=== PATIENT | female | born 1945 | race Caucasian/White ===

== ENCOUNTER → 2018-09-09 | Outpatient (CLI) | payer OTHER, MEDICARE ==
[~2018-09-09] MED LIST: REGADENOSON 0.4 MG/5 ML PF SYG IVP SCH
== END | disposition home or self-care (01) ==
LOC: SHCH 08:03
PROVIDERS: ATTEND Internal Medicine Cardiovascular Disease
DX: I35.0 Nonrheumatic aortic (valve) stenosis (principal); R06.00 Dyspnea, unspecified
CPT/HCPCS: 78452; 93017; 96374; A9500 ×2

== ENCOUNTER 2019-07-16 05:37 | Day surgery (SDC) | payer OTHER, MEDICARE ==
[2019-07-14 11:00] VITALS: BP 147/68
[2019-07-14 11:25] LABS: BASOPHILS % (AUTO) 0.9 % (0.0-5.0); EOSINOPHILS % (AUTO) 2.2 % (0.0-8.0); HEMATOCRIT 39.7 % (36-48); LYMPHOCYTES % (AUTO) 36.4 % (21.0-51.0); MEAN CORPUSCULAR HEMOGLOBIN 29.8 pg (27.0-33.0); MEAN CORPUSCULAR HGB CONC 33.8 g/dL (32.0-36.0); MEAN CORPUSCULAR VOLUME 88.2 fL (79-99); MONOCYTES % (AUTO) 5.8 % (3.0-13.0); NEUTROPHILS % (AUTO) 54.7 % (40.0-77.0); NUCLEATED RED BLOOD CELLS 0.1 % (0.0-0.19); PLATELET COUNT (AUTO) 272 K/uL (130-400); RED CELL DISTRIBUTION WIDTH 13.9 % (11.0-15.5); WHITE BLOOD COUNT (AUTO) 8.2 K/uL (4.8-10.8)
[2019-07-14 11:36] LABS: APPEARANCE,URINE Clear (CLEAR); BILIRUBIN,URINE Negative (NEGATIVE); COLOR,URINE Yellow (YELLOW); GLUCOSE, URINE (UA) Negative (NEGATIVE); KETONES,URINE Negative (NEGATIVE); LEUKOCYTE ESTERASE ,URINE Negative (NEGATIVE); NITRATE,URINE Negative (NEGATIVE); OCCULT BLOOD,URINE Negative (NEGATIVE); PROTEIN,URINE Negative (NEGATIVE); UROBILINOGEN,URINE 0.2 mg/dL (0.2-1.0)
[2019-07-14 11:41] LABS: CREATININE 1.1 mg/dL (0.5-1.5); POTASSIUM 4.3 mmol/L (3.5-5.1)
[2019-07-14 11:42] LABS: INR 0.96 (0.85-1.15); PARTIAL THROMBOPLASTIN TIME 25.4 SEC (26.3-35.5); PROTHROMBIN TIME 10.1 SEC (9.6-11.6)
--- NOTE | 2019-07-15 12:36 | NUR ---
abnormal ekg: notified john major of dr. campos regarding ekg showing atrial fibrillation and no doumenttion of pt having any histoiry on history and physical. ok to preocedd with heart catheterization.
[2019-07-16] VITALS (11 sets, daily range): BP systolic 109–131; BP diastolic 45–79
[~2019-07-16] VITALS: Ht 165.1 cm; Wt 112.6 kg
[~2019-07-16 05:37] MED LIST changes: +AEC81 PO; +ALBUTEROL INHALER PO; +ALEN35TA23 PO; +CARV6.25 PO; +FURO20TA4 PO; +LEVO175T9 PO; +LISI-613 PO; +METF-444 PO; +OMEG100014 PO; -REGADENOSON 0.4 MG/5 ML PF SYG IVP SCH; +SIMV40TA5 PO
--- NOTE | 2019-07-16 06:10 | NUR ---
PRE-PROCEDURE RECEIVED FROM HOME VIA AMBULATING TO DAY 15 FOR SCHEDULED RT AND LHC. AWAKE IN NO ACUTE DISTRESS, BUT WITH EXERTIONAL SOA. DENIES PAIN. CONNECTED TO CONTINUOUS CARDIOPULMONARY MONITORING. SIDE RAILS UP X2, BED IN LOWEST POSITION, AND CALL LIGHT W/IN REACH.
[2019-07-16] MEDS ORDERED: SODIUM CHLORIDE 0.9% 1000ML 1,000 ML IV ONE (06:55)
[2019-07-16] MEDS ORDERED: IOHEXOL-350 50ML VIAL IV ONE (06:59)
[2019-07-16] MEDS ORDERED: HEPARIN SODIUM 1000UNIT/ML 10ML VIAL ONE (06:59)
[2019-07-16] MEDS ORDERED: IOHEXOL 350 MG/ML 100ML INFUS..BTL IV ONE (06:59)
[2019-07-16] MEDS ORDERED: LIDOCAINE HCL 2% 20ML ONE (07:00)
--- NOTE | 2019-07-16 07:10 | NUR ---
PROCEDURE TRANSFERRED TO CHEMICAL LABORATORY TESTER VIA BED BY EBONI PACE RN. AWAKE IN NO ACUTE DISTRESS.
[2019-07-16] MEDS ORDERED: GLUCAGON 1MG KIT 1 MG ML IM PRN (08:45)
[2019-07-16] MEDS ORDERED: SODIUM CHLORIDE 0.9% 10 ML VIAL IVP SCH (08:45)
[2019-07-16] MEDS ORDERED: DEXTROSE 50%-WATER 50 ML DISP.SYRIN IV PRN (08:45)
--- NOTE | 2019-07-16 09:16 | NUR ---
POST-PROCEDURE RECEIVED FROM [facility]ER VIA BED S/P RT AND C VIA BED BY EBONI PACE RN. AWAKE IN NO ACUTE DISTRESS. CONNECTED TO CONTINUOUS CARDIOPULMONARY MONITORING. CATH SITE W/O SIGNS OF BLEEDING, D-STAT CLEAN, DRY, AND INTACT;SITE SOFT, NON-TENDER. SIDE RAILS UP X2, BED IN LOWEST POSITION, AND CALL LIGHT W/IN REACH. INSTRUCTED PT ON IMPORTANCE OF KEEPING RIGHT LEG STRAIGHT AND HEAD FLAT. PT VERBALIZED UNDERSTANDING.
--- NOTE | 2019-07-16 11:06 | NUR ---
FAXED FACE SHEET, DIAGRAM, AND CATH REPORT FAXED TO DR. UREÑA OFFICE ORDERED.
[2019-07-16] MEDS ORDERED: INSULIN HUMULIN R 100 UNIT/ML 3ML SQ SCH (11:30)
--- NOTE | 2019-07-16 12:00 | NUR ---
DIET ATE 75% ON LUNCH.
--- NOTE | 2019-07-16 12:30 | NUR ---
ACTIVITY HOB ELEVATED TO 25 DEGREES. CATH SITE W/O SIGNS OF BLEEDING, DSTAT DRESSING CLEAN, DRY, AND INTACT;SITE SOFT, NON-TENDER.
--- NOTE | 2019-07-16 15:06 | NUR ---
REPORT BEDSIDE REPORT GIVEN TO BEATRIZ VARGAS USING SBAR/VERBALIZED UNDERSTANDING.
--- NOTE | 2019-07-16 15:15 | NUR ---
PT IS RESTING COMFORTABLY WITH NO PAIN AND FAMILY AT BEDSIDE. DRESSING IS DRY AND INTACT AND PD PULSES ARE PRESENT WILL CONTINUE TO MONITOR.
--- NOTE | 2019-07-16 17:00 | NUR ---
PT. LEFT VIA WHEELCHAIR IN PVT CAR WITH DAUGHTER. D/C INSTRUCTION GIVEN TO DAUGHTER WITH F/U APPT. DRESSING WAS DRY AND INTACT AND PD WERE PRESENT TO L/EXT.BILATERALLY.
== END 2019-07-16 17:00 | disposition home or self-care (01) ==
LOC: DAH 05:37
PROVIDERS: ATTEND Internal Medicine Cardiovascular Disease
DX: I35.0 Nonrheumatic aortic (valve) stenosis (principal); I25.10 Atherosclerotic heart disease of native coronary artery without angina pectoris; I11.9 Hypertensive heart disease without heart failure; E03.9 Hypothyroidism, unspecified; E78.00 Pure hypercholesterolemia, unspecified; E11.9 Type 2 diabetes mellitus without complications; Z79.899 Other long term (current) drug therapy; Z79.82 Long term (current) use of aspirin; Z79.84 Long term (current) use of oral hypoglycemic drugs; Z90.710 Acquired absence of both cervix and uterus; Z79.01 Long term (current) use of anticoagulants; Z87.891 Personal history of nicotine dependence; Z82.49 Family history of ischemic heart disease and other diseases of the circulatory system; Z83.3 Family history of diabetes mellitus
CPT/HCPCS: 36415; 71045; 80048; 81003; 82948 ×3; 85025; 85610; 85730; 93005; 93460; A4215; A4216; A4222; A4223 ×3; A4606; A4663; C1769 ×3; C1894 ×2; J1644; J3490; J7030; Q9965; Q9967 ×2

== ENCOUNTER 2025-03-06 19:05 | Inpatient (IN) | payer OTHER, MEDICARE ==
[~2025-03-06] VITALS: Ht 154.9 cm; Wt 117.3 kg
[~2025-03-06 19:05] MED LIST changes: -ALEN35TA23 PO; +ALEN35TA53 PO; +APIX5TAB PO; -LISI-613 PO; +LISI20TA24 PO; +SIMV-46 PO; -SIMV40TA5 PO
--- NOTE | 2025-03-06 19:44 | EKG ---
[facility] Test Date: 2025-03-06 Test Time: 19:40:23 Pat Name: BRIDGER HILLMAN Department: ED Room: 316 Gender: F Systems Security Analyst: [id number] 1945 Requested By: MYA YOUSSEF Order Number: [id number] Reading MD: Vishnu Warner Measurements Intervals [place] Rate: 90 P: 0 MT: 0 QRS: 57 QRSD: 94 T: 45 QT: 337 QTc: 412 Interpretive Statements Atrial fibrillation Compared to ECG 08/21/2019 04:45:52 No significant changes Electronically Signed On 03-07-2025 10:17:35 CDT by Vishnu Warner Please click the below link to view image of tracing.
[2025-03-06 20:08] LABS: BASOPHILS # (AUTO) 0.04 K/uL (0.00-0.20); BASOPHILS % (AUTO) 0.4 % (0.0-5.0); EOSINOPHILS # (AUTO) 0.28 K/uL (0.00-0.70); EOSINOPHILS % (AUTO) 2.6 % (0.0-8.0); HEMATOCRIT 41.8 % (36-48); IMMATURE GRANULOCYTE ABSOLUTE 0.03 K/uL (0-1); LYMPHOCYTES # (AUTO) 2.3 K/uL (1.0-4.8); LYMPHOCYTES % (AUTO) 20.6 % (21.0-51.0); MEAN CORPUSCULAR HGB CONC 33.3 g/dL (32.0-36.0); MEAN CORPUSCULAR VOLUME 93.1 fL (79-99); MONOCYTES % (AUTO) 8.9 % (3.0-13.0); NEUTROPHILS # (AUTO) 7.4 K/uL (1.8-7.7); NEUTROPHILS % (AUTO) 67.2 % (40.0-77.0); PLATELET COUNT (AUTO) 181 K/uL (130-400); RED BLOOD CELL COUNT(AUTO) 4.49 MIL/uL (4.00-5.50)
--- NOTE | 2025-03-06 20:10 | HMCIMG ---
Exam Type: CHEST 1VW Clinical Information: sob Comparison: None Findings: There is cardiomegaly and there is status post median sternotomy. The lungs are clear of infiltrates. Impression: Clear lungs.
[2025-03-06 20:17] LABS: CREATININE 2.9 mg/dL (0.5-1.0); MAGNESIUM 1.8 mg/dL (1.80-2.40); POTASSIUM 5.2 mmol/L (3.5-5.1)
--- NOTE | 2025-03-06 21:57 | HP ---
[facility] Date of Service: Mar 06, 2025 Time of Service: 21:56 PCP: Xuan Quinn HISTORY OF PRESENT ILLNESS: This is an 79-year-old female with past medical history of hypertension, hyperlipidemia, hypothyroidism, aortic stenosis, coronary artery disease with CABG x2 and aortic valve replacementwho presents to the ED for evaluation of abnormal lab results.As per patient she had a lab work done last Sunday and was told to repeat lab work today because they want to make sure it is accurate and in today in the afternoon she received a call from the clinic and instructed to come to the ED because her renal function was very low and needs to be evaluated.Patient reports she has no complaints and she has no history of kidney problem before.Patient denies nausea,vomiting,ciarrhea,chest pain,palpitation and shortness of breath. Seen and examied patient in the ER,awake,alert,coherent and ambulatory using a cane. Latest vital signs temperature 97.3, heart rate 78, respiration 23, blood pressure 118/46 saturation 96% on room air. Labs: WBC 11, hemoglobin 13, hematocrit 41 platelet count 181. Sodium 136, potassium 5.2, chloride 100, BUN 55, creatinine 2.9 GFR 16, glucose 127 troponin 59 to 48 . Chest x-ray result is clear lungs. While in the ER patient received 1 L NS bolus, 5 units insulin and Lokelma 5 g p.o. and D50 IV. We will admit patient for further medical management. REVIEW OF SYSTEMS CONSTITUTIONAL: Denies fevers, chills, or night sweats. No unintentional weight loss reported. NEUROLOGICAL: Denies headache, amaurosis fugax, motor weakness, sensory deficit, vertigo/spinning sensation, gait abnormalities, or tremors. ENT: No hearing loss, otalgia, otorrhea, rhinitis, rhinorrhea, hoarseness, or sore throat. CARDIOVASCULAR: Denies any exertional angina, dyspnea on exertion, orthopnea, paroxysmal nocturnal dyspnea, palpitations, life-threatening arrhythmias, claudication. PULMONARY: Denies any shortness of breath, cough, phlegm/sputum, hemoptysis, pleuritic chest pain. SLEEP: Denies morning headaches, daytime somnolence or napping. Denies difficulty falling asleep, staying asleep, waking from sleep. Denies knowledge of snoring. GASTROINTESTINAL: Denies any type of dysphagia to either liquids or solids. Denies nausea, vomiting, pyrosis, early satiety, abdominal pain, diarrhea, constipation, or changes in stool consistency or caliber. Denies coffee-ground emesis, hematemesis, hematochezia, or melanotic stools. GENITOURINARY: Denies frequency, urgency, nocturia, hematuria or incontinence (Storage/Irritative symptoms.) Low urinary stream, straining to void, urinary intermittency or hesitancy, splitting of the voiding stream, terminal dribbling. ENDOCRINOLOGIC: Denies polyuria, polydipsia, polyphagia or heat/cold intolerances. HEMATOLOGIC: Denies thrombophilia/previous clots, or coagulopathy/bleeding disorders. ONCOLOGIC: Denies personal history of malignancy. DERMATOLOGIC: Denies rashes or pruritus. PSYCHIATRIC: Denies any suicidal or homicidal ideation. Denies hallucinations. PAST MEDICAL HISTORY: [ Coronary artery disease, severe aortic stenosis, atrial fibrillation, hypertension, diabetes, hypothyroidism and arthritis ] PAST SURGICAL HISTORY: [ Hysterectomy, cholecystectomy Coronary artery bypass graft x2 with aortic valve replacement on August 2019 ] PAST SOCIAL HISTORY: [ Patient lives with son. Patient denies cigarette,alcohol and recreational drug use. Patient states she used to be a heavy smoker smoke two packs per day quit 2001 ] FAMILY HISTORY: [ Hypertension, diabetes, cardiovascular disease and cancer ] Coded Allergies: No Known Drug Allergies (Unverified Allergy, Unknown, 09/06/18) PHYSICAL EXAM GENERAL APPEARANCE: The patient is awake, alert, and oriented, in no acute cardiopulmonary distress. NEUROLOGICAL: Cranial nerves II-XII grossly intact. Motor is 5/5 in bilateral upper and lower extremities proximal to distal. No sensory deficits. HEENT: Face is symmetric. Pupils are equal and reactive. Extraocular movements are intact. NECK: Supple. No JVD. No thyromegaly. No submental, submandibular, pre- /postauricular, occipital or supraclavicular lymphadenopathy. CHEST: Normal chest expansion. No Telemetry. LUNGS: Absence of any rales, rhonchi or any wheezing. CARDIOVASCULAR: Regular. S1 and S2 normal. No appreciable rubs, murmurs or gallops. ABDOMEN: Soft, nontender, and nondistended. There is no rebound, voluntary guarding, or rigidity. : Deferred. No Cotton. EXTREMITIES: Non-edematous and not cyanotic. No clubbing. Good capillary refill. SKIN: No skin breakdown. Vital Sign (Last 24 Hours) 03/06/25 21:23 Temp 96.8 Pulse 100 Resp 20 B/P (MAP) 153/88 Pulse Ox 95 O2 Delivery Room Air* O2 Flow Rate 0 FiO2 21 LABS: Laboratory: Test 03/06/25 19:59 Range/Units White Blood Count 11.0 H 4.8-10.8 K/uL Red Blood Count 4.49 4.00-5.50 MIL/uL Hemoglobin 13.9 12.0-16.0 g/dL Hematocrit 41.8 36-48 % Mean Corpuscular Volume 93.1 79-99 fL Mean Corpuscular Hemoglobin 31.0 27.0-33.0 pg Mean Corpuscular Hemoglobin Concent 33.3 32.0-36.0 g/dL Red Cell Distribution Width 13.0 11.0-15.5 % Platelet Count 181 130-400 K/uL Mean Platelet Volume 9.8 7.5-10.5 fL Immature Granulocyte % (Auto) 0.3 0-1 % Neutrophils (%) (Auto) 67.2 40.0-77.0 % Lymphocytes (%) (Auto) 20.6 L 21.0-51.0 % Monocytes (%) (Auto) 8.9 3.0-13.0 % Eosinophils (%) (Auto) 2.6 0.0-8.0 % Basophils (%) (Auto) 0.4 0.0-5.0 % Neutrophils # (Auto) 7.4 1.8-7.7 K/uL Lymphocytes # (Auto) 2.3 1.0-4.8 K/uL Monocytes # (Auto) 1.0 0.1-1.0 K/uL Eosinophils # (Auto) 0.28 0.00-0.70 K/uL Basophils # (Auto) 0.04 0.00-0.20 K/uL Absolute Immature Granulocyte (auto 0.03 0-1 K/uL Nucleated Red Blood Cells 0.0 0.0-0.19 % Sodium Level 136 136-145 mmol/L Potassium Level 5.2 H 3.5-5.1 mmol/L Chloride Level 100 L 101-111 mmol/L Carbon Dioxide Level 29 21-32 mmol/L Blood Urea Nitrogen 55 H 7-18 mg/dL Creatinine 2.9 H 0.5-1.0 mg/dL Glomerular Filtration Rate Calc 16 >90 mL/min Random Glucose 127 H 70-105 mg/dL Total Calcium 9.0 8.5-10.1 mg/dL Magnesium Level 1.80 1.80-2.40 mg/dL Troponin I High Sensitivity 59 *H 4-50 ng/L DIAGNOSTICS / RADIOLOGY: [ ] ASSESSMENT: Elevated troponin POA Acute kidney injury on acute renal failure POA Morbid Obesity POA Hypertension POA Hyperlipidemia POA Coronary artery disease with CABGx2 and AVR POA Hypothyroidism POA Hyperglycemia POA Hyperkalemia POA PLAN: We will admit patient in medical telemetry We will start on hearft healthy diet We will start NS @ 100 ml / hrx1 bag and re evaluate We will continue home dose Eliquis,atorvastatin and levothyroxine home dose We will start on Famotidine 20 mgQ48H for GI prophylaxis We will add prn medication for fever,pain,cough ,nausea and vomiting We will reconcile home meds once medlist available We will trend troponin We will request labs in am We will request urinalysis We will obtain renal sonogram We will seek cardiology consultation We will seek nephrology consultation Further orders to follow depending on above results Case discussed with attending physician and came up with above treatment and plan of care. ADVANCED CARE PLANNING 1. Which of the following were discussed? Hospice Care - No Therapeutic options - Yes Advance Directives - No Other discussions - 2. Discussed with who? Patient and son Blayne Brown 3. Voluntary nature of this service was explained to the patient? Yes 4. Amount of time spent - __24 5. Reviewed by Physician? (if this service was performed by NPP) Yes Patient seen and examined by me. Agree with note by WASTE MACHINE TENDER SEE ADDITIONAL ORDERS PER CHART DISCUSSED WITH NURSING STAFF LEONIDAS HUTCHISONP Mar 06, 2025 21:57
[2025-03-06] MEDS: 0.9%NACL 1000ML 1,000 ML IV ONE (22:02)
[2025-03-06] MEDS: INSULIN humuLIN R 100 UNIT/ML 3ML IV ONE (22:02)
[2025-03-06] MEDS: SODIUM ZIRCONIUM CYCLOSILICATE 5 GM POWD.PACK PO ONE (22:02)
[2025-03-06] MEDS: DEXTROSE 50%-WATER 50 ML DISP.SYRIN IV ONE (22:02)
--- NOTE | 2025-03-06 22:20 | ERN ---
General Chief Complaint: Abnormal Labs Stated Complaint: SENT BY PHY Time Seen by MD: 19:27 Time Seen by Midlevel: 19:27 Source: patient History of Present Illness Initial Comments The patient is an 79-year-old female presenting to the emergency department for evaluation of abnormal labs. According to the patient she was told by her primary care doctor that her renal function was declining so she was advised to report to the ER for further evaluation. On arrival with the patient has no complaints Allergies: Coded Allergies: No Known Drug Allergies (Unverified Allergy, Unknown, 09/06/18) Home Meds Active Scripts Apixaban (Eliquis) 5 Mg Tablet, 5 MG PO BID, #60 TAB 2 Refills Prov:CHARLES BRONSON AUDIT TECH 08/26/19 Lisinopril (Lisinopril) 20 Mg Tablet, 10 MG PO DAILY, #30 TAB 2 Refills Prov:CHARLES BRONSON AUDIT TECH 08/26/19 Reported Medications Alendronate Sodium (Alendronate Sodium) 35 Mg Tablet, 35 MG PO QWEEK, TAB 07/14/19 [Albuterol Inhaler] 90 mcg No Conflict Check, 2 PUFF PO Q6HPRN PRN for SHORT NESS OF BREATH 07/14/19 Furosemide (Furosemide) 20 Mg Tablet, 20 MG PO DAILY, TAB 07/14/19 Metformin HCl (Metformin HCl) 500 Mg Tablet, 500 MG PO BID, TAB 07/14/19 Levothyroxine Sodium (Levothyroxine Sodium) 175 Mcg Tablet, 175 MCG PO ACBKFST, TAB 07/14/19 Simvastatin (Simvastatin) 40 Mg Tablet, 40 MG PO HS, TAB 07/14/19 Aspirin (ASPIRIN 81 MG ECTAB) 81 Mg Ectab, 81 MG PO DAILY, TAB.EC 07/14/19 T[place]on-3 Fatty Acids ([place]-3) 1,000 Mg Capsule, 1000 MG PO DAILY, CAP 07/14/19 Carvedilol (Carvedilol) 6.25 Mg Tablet, 6.25 MG PO BID, TAB 07/14/19 Past Medical History Past Medical History: High Cholesterol, Hypertension Past Surgical History: Hysterectomy, Other Surgical History Other: HEART VALVE SX ROS Dictation CONSTITUTIONAL: Negative except for HPI HEAD/FACE: Negative except for HPI EENT: Negative except for HPI RESPIRATORY: Negative except for HPI GASTROINTESTINAL/ABDOMINAL: Negative except for HPI GENITOURINARY: Negative except for HPI MUSCULOSKELETAL: Negative except for HPI INTEGUMENTARY: Negative except for HPI NEUROLOGICAL/PSYCH: Negative except for HPI HEMATOLOGIC/LYMPHATIC: Negative except for HPI All Systems Negative, Except as noted above. 13 point review of systems assessed and all negative except for above. Physical Exam Physical Exam Dictation Vital Signs reviewed General Appearance: Alert, oriented x 3, no acute distress, well developed, nourished. Head and Face: non-traumatic. Eyes: PERRL, pink conjunctivas, eyelid no trauma, anterior chamber with arcus senilis. Ears: Pinnas intact and no signs of trauma or erythema ear canals clear and no discharge TM no erythema Nose: No discharge, no bleeding. Oropharynx: Mouth normal, tongue pink, pharynx clear,no erythema, tonsils no exudates, no abscesses noted, mucous membrane moist Neck: Supple, non-tender, no thyromegaly, no masses, no JVD, no bruits Breast:Deferred Chest:No tenderness, no crepitus, no paradoxical movement, no retractions Lungs:Clear, well-ventilated, symmetric, no rales, no wheezing, no rhonchi, no stridor, good breath sounds bilaterally Heart: Regular rate, regular rhythm, no murmur, no gallops Vascular: no peripheral edema, Abdomen: Soft, positive bowel sounds, nondistended, no guarding, nontender, no rebound, no masses no hepatomegaly, no splenomegaly, no Jiménez's sign, no hernias. Rectal: Deferred Genital: Deferred Neurological: Normal speech, motor function intact, sensory function intact Musculoskeletal: Neck nontender, full range of motion, back nontender, full range of motion, Extremities: nontender, full range of motion Skin: Color pink, dry, no turgor, no rash, no lacerations, no abrasions, no contusions. Lymphatic: Deferred Results Laboratory and Microbiology Lab and Micro Result Laboratory Tests Test 03/06/25 19:59 03/06/25 21:59 White Blood Count 11.0 K/uL (4.8-10.8) H Red Blood Count 4.49 MIL/uL (4.00-5.50) Hemoglobin 13.9 g/dL (12.0-16.0) Hematocrit 41.8 % (36-48) Mean Corpuscular Volume 93.1 fL (79-99) Mean Corpuscular Hemoglobin 31.0 pg (27.0-33.0) Mean Corpuscular Hemoglobin Concent 33.3 g/dL (32.0-36.0) Red Cell Distribution Width 13.0 % (11.0-15.5) Platelet Count 181 K/uL (130-400) Mean Platelet Volume 9.8 fL (7.5-10.5) Immature Granulocyte % (Auto) 0.3 % (0-1) Neutrophils (%) (Auto) 67.2 % (40.0-77.0) Lymphocytes (%) (Auto) 20.6 % (21.0-51.0) L Monocytes (%) (Auto) 8.9 % (3.0-13.0) Eosinophils (%) (Auto) 2.6 % (0.0-8.0) Basophils (%) (Auto) 0.4 % (0.0-5.0) Neutrophils # (Auto) 7.4 K/uL (1.8-7.7) Lymphocytes # (Auto) 2.3 K/uL (1.0-4.8) Monocytes # (Auto) 1.0 K/uL (0.1-1.0) Eosinophils # (Auto) 0.28 K/uL (0.00-0.70) Basophils # (Auto) 0.04 K/uL (0.00-0.20) Absolute Immature Granulocyte (auto 0.03 K/uL (0-1) Nucleated Red Blood Cells 0.0 % (0.0-0.19) Sodium Level 136 mmol/L (136-145) Potassium Level 5.2 mmol/L (3.5-5.1) H Chloride Level 100 mmol/L (101-111) L Carbon Dioxide Level 29 mmol/L (21-32) Blood Urea Nitrogen 55 mg/dL (7-18) H Creatinine 2.9 mg/dL (0.5-1.0) H Glomerular Filtration Rate Calc 16 mL/min (>90) Random Glucose 127 mg/dL (70-105) H Total Calcium 9.0 mg/dL (8.5-10.1) Magnesium Level 1.80 mg/dL (1.80-2.40) Troponin I High Sensitivity 59 ng/L (4-50) *H Whole Blood Glucose 125 MG/DL (70-110) H Labs Reviewed?: Yes MDM MDM: Differential diagnosis: Dehydration, acute kidney injury, electrolyte ab normality Rationale: Tests considered and ordered secondary to shared decision making include: Previous outside records reviewed: Old ER visits. Risk of complication and/or morbidity or mortality of patient management: None Medications-Per medication reconciliation Need for hospitalization: Patient does meet criteria for hospitalization. Need for emergency major/minor surgery: No There are no social concerns with this patient. Prescription drug management Prescriptions will include symptomatic care Patient's prior external medical records from other ER visits were reviewed by me as indicated. Prior testing and results from previous visits were reviewed. Prior tests were taken into account with medical decision making and resource utilization, independent historian/historians were used to obtain complete medical history. I independently interpreted the test that were performed, results were reviewed by me and considered findings on radiology if ordered. Medical management and examination interpretation discussions were had by me with other qualified healthcare professionals as indicated for the patient's care. ED Course Orders Procedure Category Date Status Time Cbc With Differential LAB 03/06/25 Complete 19:27 Basic Metabolic Panel LAB 03/06/25 Complete 19:27 Troponin I High LAB 03/06/25 Complete Sensitivity 19:27 12 Lead Ekg Tracing- EKG 03/06/25 Complete Technical 19:27 Urinalysis Profile LAB 03/06/25 Logged 19:27 Magnesium LAB 03/06/25 Complete 19:27 Chest 1vw RAD 03/06/25 Resulted 19:27 0.9%Nacl 1000ml (Ns PHA 03/06/25 Complete 1000ml) 20:30 Insulin Regular, PHA 03/06/25 Complete Human 3ml (Humulin R 20:30 Sodium Zirconium PHA 03/06/25 Complete Cyclosilicate 20:30 Dextrose 50%-Water PHA 03/06/25 Complete (D50w) 21:00 Current Medications Medications (Trade) Dose Ordered Sig/Carol Ann Route PRN Reason Start Time Stop Time Status Last Admin Dose Admin Dextrose (D50w) 50 ml ONCE ONCE IV 03/06/25 21:00 03/06/25 21:01 DC 03/06/25 22:02 Insulin Human Regular (humuLIN R 100 UNIT/ML 3ML) 5 unit ONCE ONCE IV 03/06/25 20:30 03/06/25 20:31 DC 03/06/25 22:02 Sodium Chloride 1,000 ml @ 0 mls/hr ONCE ONCE IV 03/06/25 20:30 03/06/25 20:31 DC 03/06/25 22:02 Sodium Zirconium Cyclosilicate (Lokelma) 5 gm ONCE ONCE PO 03/06/25 20:30 03/06/25 20:31 DC 03/06/25 22:02 Vital Signs Date Time Temp Pulse Resp B/P (MAP) Pulse Ox O2 Delivery O2 Flow Rate FiO2 03/06/25 21:23 96.8 100 20 153/88 95 Room Air* 0 21 03/06/25 19:21 98.1 87 18 139/56 93 Room Air 0 DX & DISP Disposition: Discharge Departure Impression: Primary Impression: ROMULO (acute kidney injury) Additional Impressions: Dehydration, Hyperkalemia, Elevated troponin Condition: Stable Referrals: CHACHO YATES MD (PCP) Time of Disposition: 22:19 I have reviewed the case, and I agree with, Diagnosis and Plan I performed the substantive portion of the visit. I have reviewed and personally made and approve the management plan that is documented in the note by myself or the [facility]. I acknowledge for responsibility for the patient's elaina gement plan. MYA YOUSSEF Mar 06, 2025 22:20
[2025-03-06] MEDS ORDERED: acetaMINOPHEN 325 MG TAB PO PRN ×2 (22:30)
[2025-03-06] MEDS ORDERED: ondanSETRON 4MG INJ IV PRN (22:30)
[2025-03-06] MEDS: 0.9%NACL 1000ML 1,000 ML IV SCH (22:40)
[2025-03-06] MEDS: FAMOTIDINE 20MG TAB PO SCH (22:40)
[2025-03-07] VITALS (7 sets, daily range): BP systolic 108–154; BP diastolic 41–93; PULSE 66–82; RESP 18–20; TEMP 97.7–98.2; O2SAT 95–96
[2025-03-07 01:34] LABS: HEMOGLOBIN A1C 6.4 % (4.0-6.0)
[2025-03-07 05:28] LABS: BASOPHILS # (AUTO) 0.06 K/uL (0.00-0.20); BASOPHILS % (AUTO) 0.6 % (0.0-5.0); EOSINOPHILS # (AUTO) 0.38 K/uL (0.00-0.70); EOSINOPHILS % (AUTO) 4.1 % (0.0-8.0); HEMATOCRIT 38.4 % (36-48); IMMATURE GRANULOCYTE ABSOLUTE 0.02 K/uL (0-1); LYMPHOCYTES # (AUTO) 2.6 K/uL (1.0-4.8); LYMPHOCYTES % (AUTO) 28.1 % (21.0-51.0); MEAN CORPUSCULAR HEMOGLOBIN 31.1 pg (27.0-33.0); MEAN CORPUSCULAR HGB CONC 33.6 g/dL (32.0-36.0); MEAN CORPUSCULAR VOLUME 92.5 fL (79-99); MONOCYTES % (AUTO) 11.3 % (3.0-13.0); NEUTROPHILS # (AUTO) 5.1 K/uL (1.8-7.7); NEUTROPHILS % (AUTO) 55.7 % (40.0-77.0); PLATELET COUNT (AUTO) 176 K/uL (130-400); RED BLOOD CELL COUNT(AUTO) 4.15 MIL/uL (4.00-5.50); RED CELL DISTRIBUTION WIDTH 13.1 % (11.0-15.5); WHITE BLOOD COUNT (AUTO) 9.2 K/uL (4.8-10.8)
[2025-03-07 05:56] LABS: BILIRUBIN,TOTAL 0.6 mg/dL (0.2-1.0); CREATININE 2.3 mg/dL (0.5-1.0); MAGNESIUM 1.8 mg/dL (1.80-2.40); POTASSIUM 4.8 mmol/L (3.5-5.1); TOTAL PROTEIN, SERUM 7.1 g/dL (6.0-8.3)
[2025-03-07] MEDS: levoTHYROxine 150 MCG TABLET PO SCH (06:47)
[2025-03-07] MEDS: levoTHYROxine 25 MCG TABLET PO SCH (06:47)
[2025-03-07] MEDS ORDERED: NON-FORMULARY MEDICATION 1 EACH (Levothyroxine Sodium 175 MCG) PO SCH (07:30)
[2025-03-07] MEDS: APIXaban 5 MG TABLET PO SCH ×2 (09:17→20:44)
[2025-03-07] MEDS ORDERED: SPIR25TA6 PO (09:23)
[2025-03-07] MEDS ORDERED: ASPI-1197 PO (09:23)
[2025-03-07] MEDS ORDERED: FURO20TA4 PO (09:23)
[2025-03-07] MEDS ORDERED: LISI10TA24 PO (09:23)
[2025-03-07] MEDS ORDERED: METO50TA18 PO (09:23)
[2025-03-07] MEDS ORDERED: APIX2.5T PO (09:28)
--- NOTE | 2025-03-07 11:59 | PN ---
[facility] PROGRESS NOTE Date of Service: Mar 07, 2025 Time of Service: 11:49 SUBJECTIVE: [ ] This is an 79-year-old female with past medical history of hypertension, hyperlipidemia, hypothyroidism, aortic stenosis, coronary artery disease with CABG x2 and aortic valve replacementwho presents to the ED for evaluation of abnormal lab results.As per patient she had a lab work done last Sunday and was told to repeat lab work today because they want to make sure it is accurate and in today in the afternoon she received a call from the clinic and instructed to come to the ED because her renal function was very low and needs to be evaluated. 03/07/25 patient is seen and examined reviewed labs renal function improving 23 from 2.9 . Patient's home medications regimen on lisinopril and Lasix/spironolactone at home. the patient on Eliquis heart valve surgery. waiting for set up operator input. REVIEW OF SYSTEMS CONSTITUTIONAL: Denies fevers, chills, or night sweats. No unintentional weight loss reported. NEUROLOGICAL: Denies headache, amaurosis fugax, motor weakness, sensory deficit, vertigo/spinning sensation, gait abnormalities, or tremors. ENT: No hearing loss, otalgia, otorrhea, rhinitis, rhinorrhea, hoarseness, or sore throat. CARDIOVASCULAR: Denies any exertional angina, dyspnea on exertion, orthopnea, paroxysmal nocturnal dyspnea, palpitations, life-threatening arrhythmias, claudication. PULMONARY: Denies any shortness of breath, cough, phlegm/sputum, hemoptysis, pleuritic chest pain. SLEEP: Denies morning headaches, daytime somnolence or napping. Denies difficulty falling asleep, staying asleep, waking from sleep. Denies knowledge of snoring. GASTROINTESTINAL: Denies any type of dysphagia to either liquids or solids. Denies nausea, vomiting, pyrosis, early satiety, abdominal pain, diarrhea, constipation, or changes in stool consistency or caliber. Denies coffee-ground emesis, hematemesis, hematochezia, or melanotic stools. GENITOURINARY: Denies frequency, urgency, nocturia, hematuria or incontinence (Storage/Irritative symptoms.) Low urinary stream, straining to void, urinary intermittency or hesitancy, splitting of the voiding stream, terminal dribbling. ENDOCRINOLOGIC: Denies polyuria, polydipsia, polyphagia or heat/cold intolerances. HEMATOLOGIC: Denies thrombophilia/previous clots, or coagulopathy/bleeding disorders. ONCOLOGIC: Denies personal history of malignancy. DERMATOLOGIC: Denies rashes or pruritus. PSYCHIATRIC: Denies any suicidal or homicidal ideation. Denies hallucinations. PHYSICAL EXAM GENERAL APPEARANCE: The patient is awake, alert, and oriented, in no acute cardiopulmonary distress. NEUROLOGICAL: Cranial nerves II-XII grossly intact. Motor is 5/5 in bilateral upper and lower extremities proximal to distal. No sensory deficits. HEENT: Face is symmetric. Pupils are equal and reactive. Extraocular movements are intact. NECK: Supple. No JVD. No thyromegaly. No submental, submandibular, pre- /postauricular, occipital or supraclavicular lymphadenopathy. CHEST: Normal chest expansion. No Telemetry. LUNGS: Absence of any rales, rhonchi or any wheezing. CARDIOVASCULAR: Regular. S1 and S2 normal. No appreciable rubs, murmurs or gallops. ABDOMEN: Soft, nontender, and nondistended. There is no rebound, voluntary guarding, or rigidity. : Deferred. No Cotton. EXTREMITIES: Non-edematous and not cyanotic. No clubbing. Good capillary refill. SKIN: No skin breakdown. Vital Signs (last 8hr) Date Time Temp Pulse Resp B/P (MAP) Pulse Ox O2 Delivery O2 Flow Rate FiO2 03/07/25 11:26 97.7 68 18 119/68 95 Room Air 03/07/25 07:51 97.7 75 18 114/58 94 Room Air 03/07/25 04:35 98.2 78 20 108/41 96 Room Air LABS: Laboratory: Test 03/07/25 10:36 03/07/25 05:20 03/06/25 21:59 03/06/25 19:59 Range/Units Troponin I High Sensitivity 48 4-50 ng/L White Blood Count 9.2 4.8-10.8 K/uL Red Blood Count 4.15 4.00-5.50 MIL/uL Hemoglobin 12.9 12.0-16.0 g/dL Hematocrit 38.4 36-48 % Mean Corpuscular Volume 92.5 79-99 fL Mean Corpuscular Hemoglobin 31.1 27.0-33.0 pg Mean Corpuscular Hemoglobin Concent 33.6 32.0-36.0 g/dL Red Cell Distribution Width 13.1 11.0-15.5 % Platelet Count 176 130-400 K/uL Mean Platelet Volume 9.9 7.5-10.5 fL Immature Granulocyte % (Auto) 0.2 0-1 % Neutrophils (%) (Auto) 55.7 40.0-77.0 % Lymphocytes (%) (Auto) 28.1 21.0-51.0 % Monocytes (%) (Auto) 11.3 3.0-13.0 % Eosinophils (%) (Auto) 4.1 0.0-8.0 % Basophils (%) (Auto) 0.6 0.0-5.0 % Neutrophils # (Auto) 5.1 1.8-7.7 K/uL Lymphocytes # (Auto) 2.6 1.0-4.8 K/uL Monocytes # (Auto) 1.0 0.1-1.0 K/uL Eosinophils # (Auto) 0.38 0.00-0.70 K/uL Basophils # (Auto) 0.06 0.00-0.20 K/uL Absolute Immature Granulocyte (auto 0.02 0-1 K/uL Nucleated Red Blood Cells 0.0 0.0-0.19 % Sodium Level 140 136-145 mmol/L Potassium Level 4.8 3.5-5.1 mmol/L Chloride Level 104 101-111 mmol/L Carbon Dioxide Level 30 21-32 mmol/L Blood Urea Nitrogen 57 H 7-18 mg/dL Creatinine 2.3 H 0.5-1.0 mg/dL Glomerular Filtration Rate Calc 21 >90 mL/min Random Glucose 92 70-105 mg/dL Total Calcium 9.1 8.5-10.1 mg/dL Magnesium Level 1.80 1.80-2.40 mg/dL Total Bilirubin 0.6 0.2-1.0 mg/dL Aspartate Amino Transf (AST/SGOT) 26 10-37 U/L Alanine Aminotransferase (ALT/SGPT) 31 12-78 U/L Alkaline Phosphatase 72 50-136 U/L Total Protein 7.1 6.0-8.3 g/dL Albumin 3.0 L 3.5-5.0 g/dL Triglycerides Level 101 30-200 mg/dL Cholesterol Level 128 <200 mg/dL LDL Cholesterol 72 0-99 mg/dL HDL Cholesterol 38 35-85 mg/dL Whole Blood Glucose 125 H 70-110 MG/DL Hemoglobin A1c 6.4 H 4.0-6.0 % Estimated Average Glucose (eAG) 137 H 70-126 mg/dL Current Medications Medications (Trade) Dose Ordered Sig/Carol Ann Route PRN Reason Start Time Stop Time Status Last Admin Dose Admin Acetaminophen (TYLenol 325MG TAB) 650 mg Q4H PRN PO MILD PAIN (1-3) 03/06/25 22:30 04/05/25 22:29 Acetaminophen (TYLenol 325MG TAB) 650 mg Q6H PRN PO TEMPERATURE GREATER THAN 101.5 03/06/25 22:30 04/05/25 22:29 Apixaban (EliquIS) 5 mg BID PO 03/07/25 09:00 04/06/25 08:59 03/07/25 09:17 5 MG Atorvastatin Calcium (LIPItor 20MG) 20 mg HS PO 03/07/25 21:00 04/06/25 20:59 Famotidine (Pepcid 20mg Tab) 20 mg Q48H PO 03/06/25 22:30 04/05/25 22:29 03/06/25 22:40 20 MG Levothyroxine Sodium (SYNTHroid 150MCG TAB) 150 mcg SYN PO 03/07/25 06:30 04/06/25 06:29 03/07/25 06:47 150 MCG Levothyroxine Sodium (SYNTHroid 25MCG TAB) 25 mcg SYN PO 03/07/25 06:30 04/06/25 06:29 03/07/25 06:47 25 MCG Miscellaneous Medication (Levothyroxine Sodium ) 175 mcg ACBKFST PO 03/07/25 07:30 03/06/25 22:27 DC Ondansetron HCl (zoFRAN 4MG INJ) 4 mg Q6H PRN IV NAUSEA/VOMITING 03/06/25 22:30 04/05/25 22:29 Sodium Chloride 1,000 ml @ 100 mls/hr Q10H IV 03/06/25 22:30 04/05/25 22:29 03/06/25 22:40 100 MLS/HR DIAGNOSTICS / RADIOLOGY: [ ] ASSESSMENT: Elevated troponin POA Acute kidney injury on acute renal failure POA Morbid Obesity POA Hypertension POA Hyperlipidemia POA Coronary artery disease with CABGx2 and AVR POA Hypothyroidism POA Hyperglycemia POA Hyperkalemia POA PLAN: We will admit patient in medical telemetry We will start on heart healthy diet consultants: Vice President Of Consulting Services and server assistant decreased IVF's; NS @ 75 ml strict I/O daily weight renal dose medications continue home dose Eliquis,atorvastatin and levothyroxine home dose CE trending down; no chest pain events overnight. continue with PPX: Famotidine 20 mgQ48H for GI prophylaxis Imaging: renal sonogram noted will wait for neprologist rec's. Further orders to follow depending on above results all questions addressed. ATTESTATION BY PHYSICIAN I have seen and examined the patient. I reviewed the documentation, medical decision making, and treatment plan as noted by the mid-level provider above. I agree with the findings and plan of care. NIKUNJ MCCOY MD, ELIZABETH NP Mar 07, 2025 11:59
[2025-03-07] MEDS: 0.9%NACL 1000ML 1,000 ML IV SCH (12:00)
--- NOTE | 2025-03-07 14:36 | NUR ---
DCP: HOME SW spoke with son CAITLIN Allred [phone]. pt lives alone in her home however her son is her neighbor. Pt uses a cane and walker at home to ambulate . Pt does not have a provider or home health services at this time. PCP is Dr. Cheyenne Govea and uses [facility] for any RX needs. At MD pt will go home and family will assist with transportation. Addendum: 03/07/25 at 1442 by JAYSHREE JACOBSON SS Amended: Links added.
--- NOTE | 2025-03-07 17:43 | CONS ---
REFERRING PHYSICIAN: Dr. Morales. REASON FOR CONSULTATION: Renal failure. HISTORY OF PRESENT ILLNESS: An 79-year-old female with a history of hypertension and coronary artery disease. The patient is status post CABG as well as valve replacement. The patient presented to the hospital secondary to acute renal failure. The patient had labs drawn by primary care physician and found to have significantly elevated BUN and creatinine and the patient was sent to the emergency room. The patient denies any previous history of renal dysfunction. In the emergency room, the patient was found to have some relative hypotension. The patient states that the only new medication she had been prescribed had been lisinopril. She denies any significant nonsteroidal use and the patient is being seen in consultation for all of the above. PAST MEDICAL HISTORY: Coronary artery disease, valvular heart disease, hypertension. PAST SURGICAL HISTORY: CABG, valve replacement, cholecystectomy. SOCIAL HISTORY: She lives independently. There is no tobacco use. FAMILY HISTORY: There is no renal disease in the family. ALLERGIES: There are no allergies. MEDICATIONS: Noted. REVIEW OF SYSTEMS: GENERAL: She is feeling weak and tired. HEENT: No change in vision. No change in hearing. CARDIOVASCULAR: There are no current chest pains or palpitations. PULMONARY: No shortness of breath. GASTROINTESTINAL: The patient is tolerating a diet. MUSCULOSKELETAL: Complains of weakness. NEUROLOGIC: No seizures or focal deficits. PSYCHIATRIC: No history of hallucinations or psychosis. ENDOCRINE: The patient does have thyroid disease. HEME: No history of anemia or malignancy. PHYSICAL EXAMINATION: VITAL SIGNS: Blood pressure is 119/68, pulse 60s, afebrile. GENERAL: She is a chronically ill female, elderly, lying in bed on the medical floor. HEENT: Head is atraumatic. Pupils are equal, roving to light. Oropharynx is without exudate. Nares are clear. NECK: There is no JVP. There is no thyromegaly, no mass. CARDIOVASCULAR: Regular. There is no S3, S4 gallop. LUNGS: Coarse with equal thoracic movement. ABDOMEN: Soft, nondistended, nontender. EXTREMITIES: Reveal no clubbing, no cyanosis. NEUROLOGICAL: She is awake. She is alert. She is oriented. SKIN: Reveals no rash or nodules. BACK: There is no CVA tenderness. There is no back deformity. LABORATORY DATA: Sodium 140, potassium 4.8, BUN 57, creatinine is 2.3, initial creatinine was 2.9 mg/dL. Hemoglobin 12, hematocrit 38, white cell count is 9000. Renal ultrasound is pending. Chest x-ray reveals no evidence of pulmonary vascular congestion. IMPRESSION: * Acute renal failure. * Hypertension. * Coronary artery disease. * History of thyroid disease. PLAN: The patient's creatinine is much improved overnight. The patient had been given IV fluids in the emergency room. The patient has been given a one-time liter of normal saline as a bolus and we will follow closely. The patient's lisinopril will need to be placed on hold indefinitely upon discharge to home. The patient's laboratory values can all be repeated in the morning. We will also send off for ultrasound. We will review the renal ultrasound when it becomes available. All labs can be repeated in the morning. TID: [id number] RECEIPT: [id number]
--- NOTE | 2025-03-07 18:33 | CONS ---
With history of aortic valve replacement for aortic stenosis and coronary bypass for coronary disease has generally been stable from a cardiac perspective but has been started on spironolactone recently, apparently for hypertension. She now has acute renal failure with creatinine 2.9 which has improved with hydration, currently 2.3. She has had no cardiac symptoms of any kind. For reasons that are unclear troponins were drawn and of the three troponins one of them was mildly above the normal limit at 59. Patient has absolutely no symptoms to suggest any type of cardiac instability. Physical exam shows an obese cheerful patient oriented in all spheres who offers good history. No JVD, normal carotid volume, no rales or rhonchi, nonlabored respiration, PMI not palpable, preserved S1 and S2, I do not appreciate a murmur on exam now. No edema. Abdomen protuberant and bowel sounds normal. Impression and recommendation: Borderline troponin of this magnitude in a flat pattern is of no consequence under any circumstance, particularly not when creatinine is elevated and the patient has acute renal failure. Pursue renal issues. I will sign off. Patient History: Carcinomas SISTER Cardiovascular disease SISTER DAUGHTER Diabetes mellitus SISTER Hypertension SISTER Vitals/Labs Vital Signs Date Time Temp Pulse Resp B/P (MAP) Pulse Ox O2 Delivery O2 Flow Rate FiO2 03/07/25 15:58 97.9 82 18 113/56 95 Room Air 03/07/25 07:40 0 21 Laboratory Tests 03/06/25 19:59 03/07/25 05:20 Allergies: Coded Allergies: No Known Drug Allergies (Unverified Allergy, Unknown, 09/06/18) Medications Current Medications Sodium Chloride 1,000 ml @ 0 mls/hr ONCE ONCE IV Last administered on 03/06/25 22:02; Start 03/06/25 at 20:30; Stop 03/06/25 at 20:31; Status DC Dextrose 50 ml ONCE ONCE IV Last administered on 03/06/25 22:02; Start 03/06/25 at 21:00; Stop 03/06/25 at 21:01; Status DC Insulin Human Regular 5 unit ONCE ONCE IV Last administered on 03/06/25 22:02; Start 03/06/25 at 20:30; Stop 03/06/25 at 20:31; Status DC Sodium Zirconium Cyclosilicate 5 gm ONCE ONCE PO Last administered on 03/06/25at 22:02; Start 03/06/25 at 20:30; Stop 03/06/25 at 20:31; Status DC Acetaminophen 650 mg Q6H PRN PO; Start 03/06/25 at 22:30; Stop 04/05/25 at 22:29 Acetaminophen 650 mg Q4H PRN PO; Start 03/06/25 at 22:30; Stop 04/05/25 at 22:29 Ondansetron HCl 4 mg Q6H PRN IV; Start 03/06/25 at 22:30; Stop 04/05/25 at 22:29 Famotidine 20 mg Q48H PO Last administered on 03/06/25at 22:40; Start 03/06/25 at 22:30; Stop 04/05/25 at 22:29 Sodium Chloride 1,000 ml @ 100 mls/hr Q10H IV Last administered on 03/06/25at 22:40; Start 03/06/25 at 22:30; Stop 03/07/25 at 11:53; Status DC Apixaban 5 mg BID PO Last administered on 03/07/25at 09:17; Start 03/07/25 at 09:00; Stop 04/06/25 at 08:59 Miscellaneous Medication 175 mcg ACBKFST PO; Start 03/07/25 at 07:30; Stop 03/06/25 at 22:27; Status DC Atorvastatin Calcium 20 mg HS PO; Start 03/07/25 at 21:00; Stop 04/06/25 at 20:59 Levothyroxine Sodium 150 mcg SYN PO Last administered on 03/07/25at 06:47; Start 03/07/25 at 06:30; Stop 04/06/25 at 06:29 Levothyroxine Sodium 25 mcg SYN PO Last administered on 03/07/25at 06:47; Start 03/07/25 at 06:30; Stop 04/06/25 at 06:29 Sodium Chloride 1,000 ml @ 75 mls/hr [id number] IV Last administered on 03/07/25at 12:00; Start 03/07/25 at 12:00; Stop 04/06/25 at 11:59 IRMA CONTEH MD Mar 07, 2025 18:33
[2025-03-07] MEDS: atorVAStatin 20 MG TABLET PO SCH (20:55)
[2025-03-07] MEDS: APIXaban 2.5 MG TABLET PO SCH (20:55)
[2025-03-07] MEDS: metoPROLOL tartRATE 50 MG TAB PO SCH (20:55)
[2025-03-07] MEDS ORDERED: PHARMACY COMMUNICATION MISC SCH (22:00)
[2025-03-08 03:42] VITALS: BP 123/64; PULSE 69; RESP 16; TEMP 98
[2025-03-08 05:51] LABS: BASOPHILS # (AUTO) 0.05 K/uL (0.00-0.20); BASOPHILS % (AUTO) 0.6 % (0.0-5.0); EOSINOPHILS % (AUTO) 4.8 % (0.0-8.0); HEMATOCRIT 39.2 % (36-48); IMMATURE GRANULOCYTE ABSOLUTE 0.03 K/uL (0-1); LYMPHOCYTES # (AUTO) 2.6 K/uL (1.0-4.8); LYMPHOCYTES % (AUTO) 30.8 % (21.0-51.0); MEAN CORPUSCULAR HEMOGLOBIN 31.4 pg (27.0-33.0); MEAN CORPUSCULAR HGB CONC 32.9 g/dL (32.0-36.0); MEAN CORPUSCULAR VOLUME 95.4 fL (79-99); MONOCYTES # (AUTO) 0.9 K/uL (0.1-1.0); MONOCYTES % (AUTO) 10.4 % (3.0-13.0); NEUTROPHILS # (AUTO) 4.4 K/uL (1.8-7.7); PLATELET COUNT (AUTO) 167 K/uL (130-400); RED BLOOD CELL COUNT(AUTO) 4.11 MIL/uL (4.00-5.50); RED CELL DISTRIBUTION WIDTH 13.1 % (11.0-15.5); WHITE BLOOD COUNT (AUTO) 8.3 K/uL (4.8-10.8)
[2025-03-08 06:13] LABS: CREATININE 1.6 mg/dL (0.5-1.0); PHOSPHORUS 3.2 mg/dL (2.5-4.9); POTASSIUM 5.2 mmol/L (3.5-5.1)
[2025-03-08 07:59] VITALS: BP 119/68; PULSE 72; RESP 18; TEMP 97.7
--- NOTE | 2025-03-08 08:46 | DS ---
Discharge Summary Hospital Course Summary: This is an 79-year-old female with past medical history of hypertension, hyperlipidemia, hypothyroidism, aortic stenosis, coronary artery disease with CABG x2 and aortic valve replacementwho presents to the ED for evaluation of abnormal lab results.As per patient she had a lab work done last Sunday and was told to repeat lab work today because they want to make sure it is accurate and in today in the afternoon she received a call from the clinic and instructed to come to the ED because her renal function was very low and needs to be evaluated. 03/07/25 patient is seen and examined reviewed labs renal function improving 23 from 2.9 . Patient's home medications regimen on lisinopril and Lasix/spironolactone at home. the patient on Eliquis heart valve surgery. waiting for novelties sales representative input. 03/08/25 patient is hemodynamically stable for discharged . Renal function improving patient home medications have been placed on hold spironolactone Lasix in lisinopril which has been started by her PCP. Patient was seen by novelties sales representative's no intervention on this admission. Follow-up with PCP advised patient to keep a blood pressure reading log and present to PCP on follow-up appointment. She denies chest pain, shortness a breath urine output adequately no flank pain. Procedure(s): REASON: sob ORDERING PHYSICIAN: MYA YOUSSEF PROCEDURE: CXR1VW - CHEST 1VW Exam Type: CHEST 1VW Clinical Information: sob Comparison: None Findings: There is cardiomegaly and there is status post median sternotomy. The lungs are clear of infiltrates. Impression: Clear lungs. Assessment/Plan: discharged dx': Elevated troponin POA trending down Acute kidney injury on acute renal failure POA improved Morbid Obesity POA Hypertension POA Hyperlipidemia POA Coronary artery disease with CABGx2 and AVR POA Hypothyroidism POA Hyperglycemia POA Hyperkalemia POA PLAN: ADMISSION DATE: 03/06/25 DISCHARGE DATE: 03/08/25 DISPOSITION: home CONDITION: stable BIOLOGICAL CHEMIST(S): novelties sales representative, correctional maintenance technician FOLLOW UP APPOINTMENT(S): DR Sony MARINO: novelties sales representative; one wk; PCP- DR Xuan Quinn MD 2-3 days, Dr Aditya Marroquin: correctional maintenance technician one wk. PROCEDURES: none IMAGING (S) report attached to summary : US renal MICROBIOLOGY: report attached to summary;None ACTIVITY: ab deep as tolerated HOME MEDICATIONS Reviewed: will hold spirolactone and Lasix will follow up with novelties sales representative one wk. CHANGES ON HOME MEDICATIONS Hold spirolactone and lisinopril: will follow up PCP to restarted in needed: blood pressure controlled NEW MEDICATIONS none TEACHING: advice to keep a blood pressure log recording: reading am, noon, and evening . each on different day then repeat cycle: present to novelties sales representative and PCP Emergency instructions: The patient was instructed to present to the nearest Emergency Department or call 911 should their symptoms return or worsen. Discharge Instructions: Item Value Date Time White Blood Count 11.0 K/uL H 03/06/251958 White Blood Count 8.3 K/uL 03/08/25 0540 Red Blood Count 4.11 MIL/uL 03/08/25 0540 Hemoglobin 12.9 g/dL 03/08/25 0540 Hematocrit 39.2 % 03/08/25 0540 Mean Corpuscular Volume 95.4 fL 03/08/25 0540 Mean Corpuscular Hemoglobin 31.4 pg 03/08/25 0540 Mean Corpuscular Hemoglobin Concent 32.9 g/dL 03/08/25 0540 Red Cell Distribution Width 13.1 % 03/08/25 0540 Platelet Count 167 K/uL 03/08/25 0540 Mean Platelet Volume 10.0 fL 03/08/25 0540 Immature Granulocyte % (Auto) 0.4 % 03/08/25 0540 Neutrophils (%) (Auto) 53.0 % 03/08/25 0540 Lymphocytes (%) (Auto) 30.8 % 03/08/25 0540 Monocytes (%) (Auto) 10.4 % 03/08/25 0540 Eosinophils (%) (Auto) 4.8 % 03/08/25 0540 Basophils (%) (Auto) 0.6 % 03/08/25 0540 Neutrophils # (Auto) 4.4 K/uL 03/08/25 0540 Lymphocytes # (Auto) 2.6 K/uL 03/08/25 0540 Monocytes # (Auto) 0.9 K/uL 03/08/25 0540 Eosinophils # (Auto) 0.40 K/uL 03/08/25 0540 Basophils # (Auto) 0.05 K/uL 03/08/25 0540 Absolute Immature Granulocyte (auto 0.03 K/uL 03/08/25 0540 Nucleated Red Blood Cells 0.0 % 03/08/25 0540 Sodium Level 142 mmol/L 03/08/25 0540 Potassium Level 5.2 mmol/L H 03/08/25 0540 Chloride Level 107 mmol/L 03/08/25 0540 Carbon Dioxide Level 28 mmol/L 03/08/25 0540 Blood Urea Nitrogen 43 mg/dL H 03/08/25 0540 Creatinine 1.6 mg/dL H 03/08/25 0540 Random Glucose 95 mg/dL 03/08/25 0540 Total Calcium 9.6 mg/dL 03/08/25 0540 Troponin I High Sensitivity 56 ng/L *H 03/07/25 0520 Troponin I High Sensitivity 48 ng/L 03/07/25 1036 B-Type Natriuretic Peptide 185 pg/mL H 03/07/25 0520 Hemoglobin A1c 6.4 % H 03/06/251958 Troponin I High Sensitivity 59 ng/L *H 03/06/251958 Troponin I High Sensitivity 48 ng/L 03/06/25 2238 Triglycerides Level 101 mg/dL 03/07/25 0520 Cholesterol Level 128 mg/dL 03/07/25 0520 LDL Cholesterol 72 mg/dL 03/07/25 0520 HDL Cholesterol 38 mg/dL 03/07/25 0520 Home Medications: Reported Medications Apixaban (Eliquis) 2.5 Mg Tablet, 1 TAB PO BID for 30 Days, #60 TAB 0 Refills 03/07/25 Apixaban (Eliquis) 2.5 Mg Tablet, 1 TAB PO BID for 30 Days, #60 TAB 0 Refills 03/07/25 Furosemide (Furosemide) 20 Mg Tablet, 1 TAB PO BID for 30 Days, #30 TAB 0 Refills 03/07/25 Lisinopril (Lisinopril) 10 Mg Tablet, 1 TAB PO DAILY for 30 Days, #30 TAB 0 Refills 03/07/25 Aspirin (Aspirin) 81 Mg Tab.chew, 1 TAB PO DAILY for 30 Days, #30 TAB 0 Refills 03/07/25 Metoprolol Tartrate (Metoprolol Tartrate) 50 Mg Tablet, 1 TAB PO BID for 30 Days, #60 TAB 0 Refills 03/07/25 Spironolactone (Spironolactone) 25 Mg Tablet, 1 TAB PO DAILY for 30 Days, #30 TAB 0 Refills 03/07/25 Levothyroxine Sodium (Levothyroxine Sodium) 175 Mcg Tablet, 175 MCG PO ACBKFST, TAB 07/14/19 Simvastatin (Simvastatin) 40 Mg Tablet, 40 MG PO HS, TAB 07/14/19 Discontinued Reported Medications Alendronate Sodium (Alendronate Sodium) 35 Mg Tablet, 35 MG PO QWEEK, TAB 07/14/19 [Albuterol Inhaler] 90 mcg No Conflict Check, 2 PUFF PO Q6HPRN PRN for SHORTNESS OF BREATH 07/14/19 Furosemide (Furosemide) 20 Mg Tablet, 20 MG PO DAILY, TAB 07/14/19 Metformin HCl (Metformin HCl) 500 Mg Tablet, 500 MG PO BID, TAB 07/14/19 Aspirin (ASPIRIN 81 MG ECTAB) 81 Mg Ectab, 81 MG PO DAILY, TAB.EC 07/14/19 Blackwell-3 Fatty Acids (Blackwell-3) 1,000 Mg Capsule, 1000 MG PO DAILY, CAP 07/14/19 Carvedilol (Carvedilol) 6.25 Mg Tablet, 6.25 MG PO BID, TAB 07/14/19 Discontinued Scripts Apixaban (Eliquis) 5 Mg Tablet, 5 MG PO BID, #60 TAB 2 Refills Prov:CHARLES BRONSON [facility] 08/26/19 Lisinopril (Lisinopril) 20 Mg Tablet, 10 MG PO DAILY, #30 TAB 2 Refills Prov:CHARLES BRONSON [facility] 08/26/19 Continued Medications: Apixaban (Eliquis) 2.5 Mg Tablet 1 TAB PO BID for 30 Days, #60 TAB 0 Refills Aspirin (Aspirin) 81 Mg Tab.chew 1 TAB PO DAILY for 30 Days, #30 TAB 0 Refills Levothyroxine Sodium (Levothyroxine Sodium) 175 Mcg Tablet 175 MCG PO ACBKFST, TAB Metoprolol Tartrate (Metoprolol Tartrate) 50 Mg Tablet 1 TAB PO BID for 30 Days, #60 TAB 0 Refills Simvastatin (Simvastatin) 40 Mg Tablet 40 MG PO HS, TAB Discontinued Medications: Furosemide (Furosemide) 20 Mg Tablet 1 TAB PO BID for 30 Days, #30 TAB 0 Refills Lisinopril (Lisinopril) 10 Mg Tablet 1 TAB PO DAILY for 30 Days, #30 TAB 0 Refills Spironolactone (Spironolactone) 25 Mg Tablet 1 TAB PO DAILY for 30 Days, #30 TAB 0 Refills ATTESTATION BY PHYSICIAN I have seen and examined the patient. I reviewed the documentation, medical decision making, and treatment plan as noted by the mid-level provider above. I agree with the findings and plan of care. NIKUNJ MCCOY MD, ELIZABETH NP Mar 08, 2025 08:46
[2025-03-08] MEDS: ASPIRIN 81MG CHEW TAB PO SCH (10:01)
[2025-03-08] MEDS: SODIUM ZIRCONIUM CYCLOSILICATE 5 GM POWD.PACK PO ONE (10:02)
[2025-03-08 11:30] VITALS: BP 116/77; PULSE 72; RESP 18; TEMP 97.7
--- NOTE | 2025-03-08 19:58 | PN ---
FOLLOWUP PROGRESS NOTE SUBJECTIVE: An 79-year-old female with history of diabetes mellitus and hypertension. She presented to the hospital with acute renal failure. The patient was found to have underlying volume depletion and hypotension. The patient was started on IV hydration and antihypertensive medications have been adjusted. The patient's renal function continues to slowly improve and she is being seen as a followup visit for all of the above. REVIEW OF SYSTEMS: CONSTITUTIONAL: She is feeling much improved since admission. HEENT: No change in vision. No change in hearing. CARDIOVASCULAR: There is no current chest pain or palpitations. PULMONARY: There is no shortness of breath. GASTROINTESTINAL: She has been started on a diet. MUSCULOSKELETAL: Complains of weakness. OBJECTIVE: VITAL SIGNS: Blood pressure 119/68, pulse 70, she is afebrile. GENERAL: Chronically ill female, elderly, lying in bed on the medical floor. HEENT: Head is atraumatic. Pupils are equal, roving to light. Oropharynx is without exudate. Nares clear. NECK: There is no JVP. There is no thyromegaly. No masses. CARDIOVASCULAR: Regular. There is no S3, S4 or gallop. LUNGS: Coarse with equal thoracic movement. ABDOMEN: Soft, nondistended, and nontender. EXTREMITIES: Three is no clubbing, no cyanosis. NEUROLOGICAL: She is awake. She is alert. LABORATORY DATA: Sodium 142, potassium 5.2, BUN 43, creatinine of 1.6, hemoglobin 12, hematocrit 39. IMPRESSION: * Acute on chronic renal failure. * Volume depletion. * Diabetes mellitus. * Hypertension. PLAN: The patient's creatinine continues to slowly improve. The patient's spironolactone and lisinopril have all been discontinued. The patient is now tolerating a diet without difficulty. Blood pressure is under much better control. The patient can safely be discharged from a renal standpoint. If the patient is discharged, the patient will follow up in the renal clinic. TID: [id number] RECEIPT: [id number]
--- NOTE | 2025-03-09 17:06 | HMCIMG ---
US RENAL SONOGRAM HISTORY: Acute renal failure COMPARISON: None TECHNIQUE: Renal and bladder ultrasound study was performed. FINDINGS: The right kidney measures 9.2 x 5.7 x 4.5 cm. The left kidney measures 9.5 x 5 x 5.3 cm. No evidence of hydronephrosis is seen of either kidney. Both kidneys are seen. Bladder is poorly distended. IMPRESSION: 1. No hydronephrosis is seen.
== END 2025-03-08 13:30 | disposition home or self-care (01) | DRG 683 ==
LOC: EDH 19:05 → EDHIP 22:18 → 3CH 03-07 00:34
PROVIDERS: ADMIT Internal Medicine; ATTEND Internal Medicine
DX: N17.9 Acute kidney failure, unspecified (principal); Z68.42 Body mass index [BMI] 45.0-49.9, adult; I12.9 Hypertensive chronic kidney disease with stage 1 through stage 4 chronic kidney disease, or unspecified chronic kidney disease; I25.10 Atherosclerotic heart disease of native coronary artery without angina pectoris; E03.9 Hypothyroidism, unspecified; E11.22 Type 2 diabetes mellitus with diabetic chronic kidney disease; E11.65 Type 2 diabetes mellitus with hyperglycemia; E66.01 Morbid (severe) obesity due to excess calories; E78.00 Pure hypercholesterolemia, unspecified; E87.5 Hyperkalemia; I35.0 Nonrheumatic aortic (valve) stenosis; I48.91 Unspecified atrial fibrillation; N18.9 Chronic kidney disease, unspecified; Z82.49 Family history of ischemic heart disease and other diseases of the circulatory system; Z83.3 Family history of diabetes mellitus; Z87.891 Personal history of nicotine dependence; Z90.710 Acquired absence of both cervix and uterus; Z95.1 Presence of aortocoronary bypass graft; Z95.2 Presence of prosthetic heart valve
CPT/HCPCS: 36415; 71045; 76770; 80048; 80053; 80061; 82948; 83036; 83735; 83880; 84100; 84484; 85025; 93005; 96374; 96375; 99285; G0378; J1815; J7030; J7070